=== PATIENT | male | born 1965 | race Caucasian/White ===

== ENCOUNTER → 2016-06-09 | Outpatient (CLI) | payer SELFPAY ==
--- NOTE | 2016-06-09 13:23 | XR ---
EXAMINATION TYPE: XR chest 2V DATE OF EXAM: 06/09/2016 10:44 AM COMPARISON: NONE HISTORY: Acute bronchitis, cough and chest pain TECHNIQUE: Frontal and lateral views of the chest are obtained. FINDINGS: There is increased AP diameter chest. Postop change noted to the cervical thoracic spine j unction. No airspace disease, pneumothorax, or pleural effusion. There is bronchial wall thickening. There is eventration of the right hemidiaphragm. Cardiomediastinal silhouette, pulmonary vascularity and nazanin are within normal limits. Strand-like densities may reflect subsegmental atelectasis or scar ring. IMPRESSION: Correlate for COPD, chronic bronchitis. There may be atelectasis or scarring. Follow-up as indicated.
== END | disposition home or self-care (01) ==
LOC: RADXRMAIN 10:30
PROVIDERS: ATTEND Physician Assistant
DX: J20.9 Acute bronchitis, unspecified (principal)
CPT/HCPCS: 71020